=== PATIENT | female | born 1990 | race Two or more races ===

== ENCOUNTER 2021-09-15 09:19 | Emergency (ER) | payer SELFPAY ==
[2021-09-15 09:57] LABS: BASOPHIL 0.4 % (0-2); EOSINOPHIL 1.1 % (0-5); HCT 34.4 % (37.0-47.0); HGB 11.2 g/dl (12.5-16.0); LYMPHOCYTE 33.3 % (15-48); MCH 28.9 pg (25.0-31.0); MCHC 32.6 g/dL (32.0-36.0); MCV 88.7 fL (78.0-100.0); MONOCYTE 7.2 % (0-12); MPV 9.5 fL (6.0-9.5); NEUTROPHIL 57.6 % (41-80); NRBC 0; PLT 313 K/uL (150-400); RBC 3.88 M/uL (4.20-5.40); RDW 12.7 % (11.5-14.0); WBC 7.4 K/uL (4.0-10.5)
[2021-09-15 10:01] LABS: ALBUMIN 3.1 g/dL (3.4-5.0); ALKALINE PHOSHATASE 51 U/L (46-116); ALT 27 U/L (14-59); AST 17 U/L (15-37); BILIRUBIN - TOTAL 0.2 mg/dL (0.2-1.0); BUN 14 mg/dL (7-18); BUN/CREAT RATIO (CALC) 25.9 RATIO; CHLORIDE 105 mmol/L (98-107); CO2 (BICARBONATE) 27 mmol/L (21-32); CREATININE 0.54 mg/dL (0.51-0.95); GLOBULIN (CALCULATION) 3.6 g/dL; GLUCOSE 145 mg/dL (74-106); POTASSIUM 3.9 mmol/L (3.5-5.1); TOTAL PROTEIN 6.7 g/dL (6.4-8.2)
[2021-09-15] MEDS ORDERED: NAPROXEN500 MG PO (11:45)
== END 2021-09-15 12:01 | disposition home or self-care (01) ==
LOC: FER 09:19
PROVIDERS: Emergency Medicine
DX: R07.89 Other chest pain (principal); E11.9 Type 2 diabetes mellitus without complications; I10 Essential (primary) hypertension; Z79.84 Long term (current) use of oral hypoglycemic drugs; Z28.310 Unvaccinated for COVID-19
CPT/HCPCS: 36415; 71045; 80053; 84484; 85025; 85379; 93005; J1885